=== PATIENT | male | born 1960 | race Two or more races ===

== ENCOUNTER 2024-05-02 12:15 | Inpatient (IN) | payer OTHER ==
[~2024-05-02] VITALS: Ht 182.9 cm; Wt 101.6 kg
[2024-05-03 12:54] VITALS: BP 148/88
[2024-05-10] MEDS ORDERED: MORPHINE SULFATE 4 MG/ML CARTRIDGE IV PRN (10:15)
[2024-05-10] MEDS ORDERED: OxyCODONE HCL 5 MG TABLET (ROXICODONE) PO PRN (10:15)
[2024-05-10] MEDS ORDERED: 0.9 % SODIUM CHLORIDE 1,000 ML IV SCH (10:15)
[2024-05-10] MEDS ORDERED: ONDANSETRON HCL 2 MG/ML VIAL IV PRN (10:15)
[2024-05-10] MEDS ORDERED: DEXTROSE 50 % IN WATER 0.5 G/ML DISP.SYRIN IV PRN (10:15)
[2024-05-10] MEDS ORDERED: CEFTRIAXONE SODIUM 2,000 MG VIAL IV ONE (10:45)
[2024-05-10] MEDS ORDERED: LIDOCAINE HCL 1%/EPINEPHRINE 20ML VIAL IJ ONE (10:45)
[2024-05-10] MEDS ORDERED: METRONIDAZOLE/SODIUM CHLORIDE 500 MG/100 ML PIGGYBACK IV ONE (10:45)
[2024-05-10] MEDS ORDERED: SUGAMMADEX SODIUM 200 MG/2 ML VIAL IV ONE (11:45)
[2024-05-10] MEDS ORDERED: MORPHINE SULFATE 4 MG/ML VIAL IV ONE ×2 (13:00→13:30)
[2024-05-10] MEDS ORDERED: HYOSCYAMINE SULFATE 0.125 MG TAB.SUBL SL SCH (13:00)
[2024-05-10] MEDS ORDERED: ONDANSETRON HCL 2 MG/ML VIAL ONE (13:03)
[2024-05-10] MEDS ORDERED: ACETAMINOPHEN 500 MG GEL..CAP PO SCH (14:00)
[2024-05-10 14:40] LABS: HEMATOCRIT 36.1 % (39.0-48.0); HEMOGLOBIN 11.9 g/dL (13-16.00); MEAN CELL VOLUME 83.5 fL (80.0-100.00); MEAN CORPUSCULAR HEMOGLOBIN 27.5 pg (27.00-32.0); PLATELET COUNT 348 K/uL (150-450); RED BLOOD COUNT 4.33 M/uL (4.00-6.00); RED CELL DISTRIBUTION WIDTH 15.1 % (11.5-14.5)
[2024-05-10 15:28] LABS: ALBUMIN 3.4 gm/dL (3.4-5.0); CALCIUM 8.6 mg/dL (8.5-10.1); CREATININE SERUM 1.29 mg/dL (0.70-1.30); GFR 56.44; POTASSIUM 3.4 mEq/L (3.5-5.1)
[2024-05-10 15:45] LABS: PHOSPHOROUS 1.9 mg/dL (2.5-4.9)
[2024-05-10 16:10] VITALS: BP 151/84; O2SAT 98
[2024-05-10] MEDS ORDERED: POLYETHYLENE GLYCOL 3350 17 GM BLIST.PACK PO SCH (17:00)
[2024-05-10] MEDS ORDERED: METRONIDAZOLE/SODIUM CHLORIDE 500 MG/100 ML PIGGYBACK IV SCH (17:00)
[2024-05-10] MEDS ORDERED: GABAPENTIN 300 MG CAPSULE PO SCH (17:00)
[2024-05-10] MEDS ORDERED: FAMOTIDINE/PF 20 MG/2 ML VIAL IV PUSH SCH (21:00)
[2024-05-10] MEDS ORDERED: CELECOXIB 200 MG CAPSULE PO SCH (21:00)
[2024-05-11] VITALS: BP 131/76; O2SAT 95
[2024-05-11 06:29] LABS: HEMATOCRIT 34.6 % (39.0-48.0); HEMOGLOBIN 11.6 g/dL (13-16.00); MEAN CELL VOLUME 82.9 fL (80.0-100.00); MEAN CORPUSCULAR HEMOGLOBIN 27.8 pg (27.00-32.0); MEAN CORPUSCULAR HGB CONC 33.6 g/dl (32.0-36.0); PLATELET COUNT 323 K/uL (150-450); RED BLOOD COUNT 4.17 M/uL (4.00-6.00); RED CELL DISTRIBUTION WIDTH 15.2 % (11.5-14.5)
[2024-05-11 07:16] LABS: ALBUMIN 3.1 gm/dL (3.4-5.0); CALCIUM 8.5 mg/dL (8.5-10.1); CREATININE SERUM 1.07 mg/dL (0.70-1.30); GFR 70.03; PHOSPHOROUS 2.8 mg/dL (2.5-4.9); POTASSIUM 3.38 mEq/L (3.5-5.1)
[2024-05-11 08:00] VITALS: BP 132/73; O2SAT 96
[2024-05-11] MEDS ORDERED: POTASSIUM CHLORIDE IN WATER 100 ML IV NR (14:45)
[2024-05-11 16:00] VITALS: BP 125/76; O2SAT 95
[2024-05-11] MEDS ORDERED: ENOXAPARIN SODIUM 40 MG/0.4 ML SYRINGE SUBCUTANEO SCH (17:00)
[2024-05-12 00:17] VITALS: BP 134/84; O2SAT 97
[2024-05-12 08:00] VITALS: BP 147/94; O2SAT 95
[2024-05-12] MEDS ORDERED: CYCLOBENZAPRINE HCL 5 MG TABLET PO SCH (09:00)
[2024-05-12] MEDS ORDERED: ENOXAPARIN SODIUM 40 MG/0.4 ML SYRINGE SUBCUTANEO SCH (09:00)
[2024-05-12] MEDS ORDERED: POTASSIUM CHLORIDE IN WATER 100 ML IV STA (13:57)
[2024-05-12 16:41] VITALS: BP 157/69; O2SAT 95
[2024-05-13] VITALS: BP 121/76; O2SAT 95
[2024-05-13 08:24] LABS: CALCIUM 8.3 mg/dL (8.5-10.1); CREATININE SERUM 1.12 mg/dL (0.70-1.30); GFR 66.43; POTASSIUM 3.86 mEq/L (3.5-5.1)
[2024-05-13] MEDS ORDERED: TRAM1TAB98 PO (10:58)
[2024-05-13] MEDS ORDERED: CYCLOBENZAPRINE5 MG PO (10:58)
[2024-05-13] MEDS ORDERED: PEPCID AC20 MG PO (10:58)
== END 2024-05-13 12:03 | disposition home or self-care (01) | DRG 331 ==
LOC: SURH 05-10 07:00 → O/R 05-10 09:26 → SURH 05-10 12:00
PROVIDERS: Specialist; ADMIT Surgery; ATTEND Surgery
PROC: 07BC4ZX Excision of Pelvis Lymphatic, Percutaneous Endoscopic Approach, Diagnostic (ICD-10-PCS; 2024-05-10)
PROC: 0DTF4ZZ Resection of Right Large Intestine, Percutaneous Endoscopic Approach (ICD-10-PCS; principal; 2024-05-10 07:00)
DX: C18.2 Malignant neoplasm of ascending colon (principal); R59.0 Localized enlarged lymph nodes